=== PATIENT | female | born 1985 | race Caucasian/White ===

== ENCOUNTER 2018-11-10 08:22 | Outpatient (CLI) | payer BC ==
[~2018-11-10] VITALS: Ht 172.7 cm; Wt 100.0 kg
[2018-11-10 11:11] VITALS: BP 125/81
== END 2018-11-10 11:20 | disposition home or self-care (01) ==
LOC: LDOP 08:22
PROVIDERS: ATTEND Student in an Organized Health Care Education/Training Program
DX: O26.893 Other specified pregnancy related conditions, third trimester (principal); Z3A.37 37 weeks gestation of pregnancy
CPT/HCPCS: 36415; 59025; 80053; 81001; 82570; 84156; 84550; 85025; 99201; G0463